=== PATIENT | female | born 1940 | race Caucasian/White ===

== ENCOUNTER → 2016-09-29 | Outpatient (CLI) | payer MEDICARE | END | disposition home or self-care (01) | LOC: GMAL 10:05 | PROVIDERS: ATTEND Family Medicine | DX: D51.3 Other dietary vitamin B12 deficiency anemia (principal); R53.82 Chronic fatigue, unspecified; E55.9 Vitamin D deficiency, unspecified ==

== ENCOUNTER → 2016-12-31 | Outpatient (CLI) | payer MEDICARE | END | disposition home or self-care (01) | LOC: GMAL 14:15 | PROVIDERS: ATTEND Family Medicine | DX: E55.9 Vitamin D deficiency, unspecified (principal) ==

== ENCOUNTER → 2017-06-24 | Outpatient (CLI) | payer MEDICARE | END | disposition home or self-care (01) | LOC: GMAL 10:33 | PROVIDERS: ATTEND Family Medicine | DX: D51.3 Other dietary vitamin B12 deficiency anemia (principal); R53.82 Chronic fatigue, unspecified; E55.9 Vitamin D deficiency, unspecified ==

== ENCOUNTER → 2017-07-01 | Outpatient (CLI) | payer MEDICARE | END | disposition home or self-care (01) | LOC: GMAL 16:45 | PROVIDERS: ATTEND Family Medicine | DX: N39.0 Urinary tract infection, site not specified (principal); R19.7 Diarrhea, unspecified ==

== ENCOUNTER → 2017-07-02 | Outpatient (CLI) | payer MEDICARE ==
--- NOTE | 2017-07-02 15:44 | CT ---
EXAM DESCRIPTION: CT ABDOMEN AND PELVIS WITHOUT AND WITH CONTRAST CLINICAL HISTORY: LOWER ABD PAIN. R10.9 COMPARISON: None Available. TECHNIQUE: CT of the abdomen and pelvis are performed prior to and during IV bolus administration of nonionic contrast. Oral contrast media is administered as well. This exam was performed according to our departmental dose-optimization program, which includes automated exposure control, adjustment of the mA and/or kV according to patient size and/or use of iterative reconstruction technique. FINDINGS: The lung bases are mildly emphysematous with an approximate 3 x 4 cm lung cyst at the anterior medial right lung base. No acute inflammation or fluid collection noted. Noncontrast imaging demonstrates no evidence of renal calculi and no gross abnormality of the gallbladder. No hydronephrosis is noted. A small retrocardiac hiatal hernia is evident. Within the pelvis a large subtly heterogeneous 12 cm right anterior pelvic mass with displacement of the uterus to the left is present. This is associated with one small subcentimeter calcification that is suspicious for a right adnexal or ovarian neoplasm. A large heterogeneous hematoma or benign process cannot be entirely excluded but is thought less likely. Postcontrast imaging demonstrates normal appearance of the upper abdomen on equilibrium phase imaging with mildly dilated small bowel loops suggesting an element of an ileus. The liver is upper normal in size and a small normal spleen is present with unremarkable appearance of the pancreas. Normal renal enhancement and excretion of contrast without significant hydronephrosis is noted. 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 There is subtle heterogeneous enhancement within the lung large 12 cm right adnexal and anterior pelvic mass with a solitary small subcentimeter calcification. The greatest amount of enhancing solid tissue appears to be at the posterior margin of the mass in the deep central pelvis. A primary ovarian or adnexal cyst adenoma or cyst adenocarcinoma is thought most likely possibility of a teratoma with the calcification would be a consideration. A large pelvic hematoma or a primary mass arising from the lateral margin of the uterus is thought unlikely. There is no significant associated abdominal or pelvic ascites. Compression of the bladder is noted. Aortic calcification without aneurysm is present. Small periaortic lymph nodes are noted and most prominent and borderline enlarged in the left periaortic region. Mild retroperitoneal lymphadenopathy would be a consideration. Anterior abdominal wall is intact. Facet degenerative arthrosis in the lower lumbar spine with preserved vertebral heights without evidence of bony metastatic disease is noted. IMPRESSION: 1. Large 12 cm heterogeneous partially cystic partially solid right adnexal mass with mixed cystic and solid appearing components and most consistent with a neoplasm of the right adnexa either a cystadenoma or cystadenocarcinoma. A teratoma or other cystic neoplastic or inflammatory process would be additional considerations. A primary uterine process is thought unlikely. 2. Questionable minimal retroperitoneal and periaortic lymphadenopathy. Mesenteric implants are not identified. 3. Abdominal ascites or mesenteric lymphadenopathy is not apparent. 4. Mildly prominent bowel loop suggesting an abdominal ileus without juan obstruction with mild left colonic diverticulosis incidentally noted 5. Small hiatal hernia with clear lung bases with mild emphysematous changes. Electronically signed by: Jason Martin MD 07/02/2017 3:43 PM [employer]
== END | disposition home or self-care (01) ==
LOC: CT 08:04
PROVIDERS: ATTEND Family Medicine
DX: R10.9 Unspecified abdominal pain (principal); R19.7 Diarrhea, unspecified

== ENCOUNTER → 2017-10-20 | Outpatient (CLI) | payer MEDICARE ==
--- NOTE | 2017-10-21 10:41 | MAM ---
EXAM DESCRIPTION: 3D Screening BILATERAL : Digital Mammography. CLINICAL HISTORY: 77 years Female SCREEN . No complaints. No family history of breast cancer. Postmenopausal. Has taken HRT 5 or more years ago. COMPARISON: 2-D digital screening bilateral study 04/15/2016. Report from prior examination also reviewed. TECHNIQUE: Bilateral CC and MLO projection full-field images, 3-D tomosynthesis digital mammographic technique. Also bilateral synthesized CC/ MLO full-field images. CAD not utilized. FINDINGS: The breast parenchymal density pattern is: Heterogeneously dense breast tissue, which may obscure small masses. No skin thickening or nipple retraction bilateral axillary lymph nodes. Bilateral solitary microcalcifications and vascular calcifications. Symmetric retroareolar fibroglandular densities more right than left stable since the prior study.. No focal, stellate mass or density, focal asymmetry , and no suspicious microcalcifications bilaterally. Stable mammograms compared to prior study, taking into account differences in mammographic technique IMPRESSION: BI-RADS CATEGORY: 2 - BENIGN FINDINGS. FOLLOW UP: Routine digital bilateral screening, one year interval from October 2017. Written communication explaining the IMPRESSION and follow-up, will be mailed to the patient and referring health care provider. According to the [employer], yearly mammograms are recommended starting at age 40 and continuing as long as a woman is in good health. Any breast change noted on a breast self-exam should be reported promptly to the patient's healthcare provider. Breast MRI is recommended for women with an approximately 20-25% or greater lifetime risk of breast cancer, including women with a strong family history of breast or ovarian cancer and women who have been treated for Hodgkin's disease. A negative mammographic report should not delay tissue diagnosis in patients with significant clinical history or physical findings. Extremely dense breast tissue limits the sensitivity of digital mammography. Electronically signed by: Christian Thomason MD 10/21/2017 10:40 AM CDT
== END ==
LOC: MAMMO 14:00
PROVIDERS: ATTEND Nurse Practitioner Family
DX: Z12.31 Encounter for screening mammogram for malignant neoplasm of breast (principal)

== ENCOUNTER → 2018-10-25 | Outpatient (CLI) | payer MEDICARE ==
--- NOTE | 2018-10-26 17:03 | MAM ---
EXAM DESCRIPTION: 3D Screening BILATERAL : Digital Mammography. CLINICAL HISTORY: 78 years Female ANNUAL SCREENING . No complaints. No personal or family history of breast cancer. Childbirth. Postmenopausal 33 years. HRT 5 or more years ago.. Lifetime risk of developing breast cancer (Tyrer-Cuzick model)(%): 2.2. COMPARISON: Bilateral screening digital breast tomosynthesis 10/20/2017. TECHNIQUE: Bilateral CC and MLO projection full-field images, digital tomosynthesis mammographic technique. Bilateral digital 2-D full-field MLO images. CAD not available for tomosynthesis or 2-D images. FINDINGS: The breast parenchymal density pattern is: Heterogeneously dense breast tissue, which may obscure small masses. No skin thickening or nipple retraction. Bilateral solitary microcalcifications. Dense fibroglandular tissues retroareolar. Bilateral vascular calcifications. Stable left axillary and intramammary lymph nodes. No new focal, stellate mass or density, focal asymmetry , and no suspicious microcalcifications bilaterally. Stable mammograms compared to prior study. IMPRESSION: Benign exam. BIRAD CATEGORY: 2 BENIGN FINDINGS. RECOMMENDATIONS: FOLLOW UP: Routine digital bilateral mammographic screening, one year interval from October 2018. Written communication explaining the IMPRESSION and follow-up, will be mailed to the patient and referring health care provider. According to the [employer], yearly mammograms are recommended starting at age 40 and continuing as long as a woman is in good health. Any breast change noted on a breast self-exam should be reported promptly to the patient's healthcare provider. Breast MRI is recommended for women with an approximately 20-25% or greater lifetime risk of breast cancer, including women with a strong family history of breast or ovarian cancer and women who have been treated for Hodgkin's disease. A negative mammographic report should not delay tissue diagnosis in patients with significant clinical history or physical findings. Extremely dense breast tissue limits the sensitivity of digital mammography. Electronically signed by: Christian Thomason MD 10/26/2018 5:00 PM CDT
== END ==
LOC: MAMMO 13:30
PROVIDERS: ATTEND Nurse Practitioner Family
DX: Z12.31 Encounter for screening mammogram for malignant neoplasm of breast (principal)